=== PATIENT | female | born 1990 ===

== ENCOUNTER → 2019-12-16 | Outpatient (CLI) | payer BC ==
[2019-12-24 18:17] LABS: SOURCE: CERVIX; TEST ORDERED: PAP LIQ-BASED
== END | disposition home or self-care (01) ==
LOC: LAB 16:34 → LAB SHORT 16:34
PROVIDERS: Hospitalist
DX: Z12.4 Encounter for screening for malignant neoplasm of cervix (principal)
CPT/HCPCS: G0145

== ENCOUNTER 2022-09-08 07:14 | Day surgery (SDC) | payer BC ==
[~2022-09-08] VITALS: Ht 162.6 cm; Wt 113.9 kg
[~2022-09-08 07:14] MED LIST: EXPECTA PRENAT1 EACH; IRON159 MG
[2022-09-08] MEDS ORDERED: NORGESTIMATE-E1 EAC2 PO (07:51)
--- NOTE | 2022-09-08 09:09 | NUR ---
09/08/22 0909 Vincenzo Arvizu ROPIVACAINE 0.5% 10 MLS MIXED & VERIFIED W/ EPI 0.05 ML (1MG/ML) PER ORDER TO MAKE ROPIVACAINE 0.5% 1:200,000 FOR INJECTION AT OPSITE BY DR ALVARADO. ABDOMINAL AREA PREPPED W/ DURAPREP BY MANUEL. ROSALIND AREA & THIGHS PREPPED W/ BETADINE SOLUTION BY NICOLASA.
--- NOTE | 2022-09-08 10:15 | NUR ---
09/08/22 Raisa5 Liberty Duncan PT EMOTIONALY WHEN BROUGHT IN TO PACU.
--- NOTE | 2022-09-08 10:52 | NUR ---
09/08/22 1052 Liberty Duncan GAVE 5/325 PERCOCET AT 1033 PAIN SCALE AT 4 1051 PAIN SCALE AT A 2. PT COMFORTABLE IN RECLINER.
== END 2022-09-08 10:56 | disposition home or self-care (01) ==
LOC: ORSCSDS 07:14
PROVIDERS: Obstetrics & Gynecology
PROC: 0UT74ZZ Resection of Bilateral Fallopian Tubes, Percutaneous Endoscopic Approach (ICD-10-PCS; principal; 2022-09-08 08:30)
PROC: 0U5F4ZZ Destruction of Cul-de-sac, Percutaneous Endoscopic Approach (ICD-10-PCS; principal; 2022-09-08 08:30)
DX: Z30.2 Encounter for sterilization (principal); N80.329 Endometriosis of the posterior cul-de-sac, unspecified depth; E66.01 Morbid (severe) obesity due to excess calories; Z68.41 Body mass index [BMI] 40.0-44.9, adult; Z87.891 Personal history of nicotine dependence; E28.2 Polycystic ovarian syndrome; Z79.899 Other long term (current) drug therapy
CPT/HCPCS: 88302; A9270; J0171; J0690; J1100; J1885; J2250; J2405; J2704; J2795; J3010; J7120

== ENCOUNTER → 2022-11-24 | Outpatient (CLI) | payer BC ==
[~2022-11-24] MED LIST changes: +NORGESTIMATE-E1 EAC2 PO
== END | disposition home or self-care (01) ==
LOC: LAB SHORT 13:41 → LAB 13:41
DX: R07.89 Other chest pain (principal)
CPT/HCPCS: 85651